=== PATIENT | female | born 1990 | race African-American/Black ===

== ENCOUNTER 2020-04-18 12:33 | Emergency (ER) | payer SELFPAY ==
[~2020-04-18] VITALS: Ht 167.6 cm; Wt 77.2 kg
[2020-04-18 13:16] VITALS: BP 139/70
[2020-04-18] MEDS ORDERED: TETANUS, DIPHTHERIA, PERTUSSIS VAC/PF 0.5ML (>7YR OLD) IM ONE (13:45)
[2020-04-18] MEDS ORDERED: LIDOCAINE HCL/PF 1% 10 MG/ML 5ML VIAL IJ ONE (13:45)
[2020-04-18] MEDS ORDERED: IBUPROFEN 600MG TABLET PO ONE (13:45)
[2020-04-18] MEDS ORDERED: BACITRACIN ZINC OINT UDPKT TOP ONE (13:45)
== END 2020-04-18 14:05 | disposition home or self-care (01) ==
LOC: ER 12:33
DX: S01.81XA Laceration without foreign body of other part of head, initial encounter (principal); W22.8XXA Striking against or struck by other objects, initial encounter; Y93.89 Activity, other specified; Y92.89 Other specified places as the place of occurrence of the external cause; Y99.8 Other external cause status
CPT/HCPCS: 90471; 90715; 99283; J3490